=== PATIENT | male | born 1990 | race African-American/Black ===

== ENCOUNTER 2016-12-05 12:46 | Emergency (ER) | payer SELFPAY ==
[~2016-12-05] VITALS: Ht 175.3 cm; Wt 86.4 kg
[~2016-12-05 12:46] MED LIST: AMOXICILLIN 50500 MG PO; BELLADONNA SL; BELLADONNA1 TA1 PO; CEPHALEXIN500 M1 PO; CLEOCIN HC150 MG/CAP PO; COLACE 100100 MG/CAP PO; DARVOCET-N-101 UDTAB PO; FLEXERIL 1010 MG/TAB PO; MUCINEX D1 TER PO; MUCINEX600 M1 PO; NAPROSYN500 MG PO; NO HOME MEDICATIONS; NORCO 325 MG-51 TAB PO; PERCOCET 325 MG1 TA2 PO; PRILOSEC 20MG20 MG PO; PRILOSEC20 M1 PO; RANITIDINE150 MG PO; TYLENOL W/COD1 UDTAB PO; ULTRAM50 MG PO
[2016-12-05 12:47] VITALS: BP 136/71; TEMP 98
[2016-12-05] MEDS ORDERED: DOXYCYCLINE 10100 MG PO (13:21)
[2016-12-05 13:36] VITALS: PULSE 62
== END 2016-12-05 13:38 | disposition home or self-care (01) ==
LOC: COL.ER 12:46
DX: L02.411 Cutaneous abscess of right axilla (principal); B95.62 Methicillin resistant Staphylococcus aureus infection as the cause of diseases classified elsewhere; F17.210 Nicotine dependence, cigarettes, uncomplicated; Z98.890 Other specified postprocedural states
CPT/HCPCS: J1100

== ENCOUNTER 2018-03-06 08:55 | Emergency (ER) | payer BC ==
[~2018-03-06] VITALS: Ht 175.3 cm; Wt 90.9 kg
[~2018-03-06 08:55] MED LIST changes: +DOXYCYCLINE 10100 MG PO
[2018-03-06 09:02] VITALS: BP 136/75; TEMP 98.7
[2018-03-06] MEDS ORDERED: DOXYCYCLINE 10100 MG PO (09:12)
[2018-03-06 09:23] VITALS: PULSE 85
== END 2018-03-06 09:23 | disposition home or self-care (01) ==
LOC: COL.ER 08:55
DX: L73.9 Follicular disorder, unspecified (principal)

== ENCOUNTER 2018-07-28 07:42 | Emergency (ER) | payer BC ==
[~2018-07-28] VITALS: Ht 175.3 cm; Wt 95.5 kg
[2018-07-28 07:50] VITALS: BP 137/75
[2018-07-28] MEDS ORDERED: PRILOSEC 20MG20 MG (07:53)
[2018-07-28] MEDS ORDERED: ZITHROMAX Z PA250 MG PO (08:04)
[2018-07-28 08:12] VITALS: PULSE 76; TEMP 97.9
== END 2018-07-28 08:12 | disposition home or self-care (01) ==
LOC: COL.ER 07:42
DX: H66.91 Otitis media, unspecified, right ear (principal)

== ENCOUNTER 2019-03-21 00:21 | Emergency (ER) | payer BC ==
[~2019-03-21] VITALS: Ht 175.3 cm; Wt 95.5 kg
[~2019-03-21 00:21] MED LIST changes: +PRILOSEC 20MG20 MG; +ZITHROMAX Z PA250 MG PO
[2019-03-21 01:07] LABS: BASO % 0.3 % (0.0-2.0); EOS # 0.2 (0.0-0.7); EOS % 2.5 % (0-4.0); GRAN # 4.2 (1.4-6.5); HEMATOCRIT 51.9 % (42.0-52.0); HEMOGLOBIN 17.4 g/dl (13.5-18.0); LYMPH # 3.9 (1.2-3.4); LYMPH % 43.7 % (20.0-51.0); MEAN CELL VOLUME 93 fl (80.0-100.0); MEAN CORPUSCULAR HEMOGLOBIN 31 pg (27.0-31.0); MEAN CORPUSCULAR HGB CONC 34 g/dl (33.0-37.0); MEAN PLATELET VOLUME 9.5 fl (7.4-10.4); MONO # 0.6 (0.1-0.6); MONO % 6.2 % (1.7-9.3); PLATELET COUNT 256 K/mm3 (130-400); REDCELL DISTRIBUTION WIDTH-CV 12.1 % (11.5-14.5)
[2019-03-21 01:24] LABS: CREATININE, serum 0.88 (0.66-1.25); POTASSIUM 4.2 mmol/L (3.4-5.0)
[2019-03-21 01:40] LABS: COLLECTION METHOD CLEAN CATCH
[2019-03-21 01:47] LABS: MUCOUS Present /lpf; PH 6 (5-8); SQUAMOUS EPITHELIAL 0-2 /hpf; URINE APPEARANCE Clear; URINE BACTERIA None Seen /hpf; URINE BILIRUBIN Negative (NEGATIVE); URINE BLOOD Negative (NEGATIVE); URINE COLOR Yellow; URINE GLUCOSE Negative (NEGATIVE); URINE KETONE Negative (NEGATIVE); URINE LEUKOCYTE ESTERASE Negative (NEGATIVE); URINE NITRATE Negative (NEGATIVE); URINE PROTEIN(semi-quant) Negative (NEGATIVE); URINE RBC 0-2 /hpf
[2019-03-21 02:11] VITALS: BP 138/78; PULSE 60; TEMP 98.6
== END 2019-03-21 02:10 | disposition home or self-care (01) ==
LOC: COL.ER 00:21
PROVIDERS: Physician Assistant
DX: M79.602 Pain in left arm (principal); R10.30 Lower abdominal pain, unspecified; K21.9 Gastro-esophageal reflux disease without esophagitis